=== PATIENT | female | born 1955 | race Caucasian/White ===

== ENCOUNTER → 2017-10-31 08:06 | Outpatient (CLI) | payer OTHER, SELFPAY ==
--- NOTE | 2017-10-31 | BRBX_PTH ---
PATIENT: CLARITZA GRISSOM LOC: [facility] U#:[id number] AGE/SX: 69/F ROOM: RE10/31/[address]: Dr. Miguel Taylor MD : 1955 BED: DIS: SPEC #: [id number] RECD: 10/31/17 10:03 STATUS: EROS RAFA #: [id number] CARMELINA: 10/31/17 00:[address]: Miguel Taylor DEPT: SURGICAL PATHOLOGY RECD BY: Eddie Ritter ENTERED: 10/31/17 10:04 SP TYPE: BREAST BX OTHR DR: Dr. Jonathon Nguyen MD Tissues: Right breast, NOS Procedures: Surgery Specimen Level IV HEADER OPERATION: Right stereotactic breast biopsy PRE-OP DIAGNOSIS: Right retroareolar microcalcifications TISSUE SUBMITTED: Right breast core tissue ISCHEMIC TIME: 1 minute FIXATION TIME: 11 hours MICROSCOPIC DIAGNOSIS Right breast, retroareolar region, stereotactic core biopsy: Fibrocystic change with hyalinized stroma. Anjalial microcalcifications. No evidence of malignancy. AM:dante 11/01/17 COMMENT Case has been reviewed in consultation with Dr. Mary who concurs with the above diagnosis. IDC:SJ MICROSCOPIC DESCRIPTION Slides are reviewed. GROSS DESCRIPTION Received is one container labeled with the patient's name and not further designated. The specimen consists of multiple elongated fragments of rey-yellow fibroadipose tissue that in aggregate measure 7.5 x 3 x 0.3 cm. The entire specimen is submitted in three cassettes. / SJ:dante 10/31/17 TC:5 CPT: 15925
--- NOTE | 2017-10-31 18:39 | PCM.OPRPT ---
Report of Operation Date of Procedure: 10/31/17 Pre-Operative Diagnosis: ABNORMAL RIGHT BREAST MAMMOGRAM - MICROCALCIFICATIONS Post-Operative Diagnosis: ABNORMAL RIGHT BREAST MAMMOGRAM - MICROCALCIFICATIONS - SUCCESSFUL BIOPSY Surgery/Procedure Performed:: RIGHT BREAST VACCUUM ASSISTED STEREOTACTIC BIOPSY, SPECIMEN RADIOGRAPH, MARKER PLACEMENT Description of Surgical Findings:: ABOVE Type of Anesthesia:: Local Specimen's removed: RIGHT BREAST TISSUE Description of Procedure: The patient was brought to the stereotactic suite and informed of the plan course of events. The right breast was positioned in the CC approach on the Ravi stereotactic table. Mammographic image demonstrated the area of abnormality to be located in the center of the radiograph. Stereotactic images were then obtained which demonstrated good positioning of the abnormality for biopsy with good stroke jerry parameters. The breast was cleaned with Betadine area did one percent lidocaine was used to anesthetize the skin and a small stab incision made. An 8-gauge mammotome needle was placed into the pre-fire position. Stereotactic images demonstrated good positioning around the planned biopsy site. Local anesthetic injected deeply in the breast. The needle was deployed. Post deployment images demonstrated good positioning of the planned biopsy site. Multiple vacuum-assisted samples were obtained and [id number] fashion. Specimen radiograph demonstrated micro-calcifications in the sample. A gel marker clip was deployed. Post biopsy images demonstrated good position of the clip relative the biopsy cavity. The breast was removed from compression. Steri-Strips and a dressing applied. Post procedure mammogram images were obtained.
--- NOTE | 2017-10-31 18:42 | OP.PCM_ITS ---
Report of Operation Date of Procedure: 10/31/17 Pre-Operative Diagnosis: ABNORMAL RIGHT BREAST MAMMOGRAM - MICROCALCIFICATIONS Post-Operative Diagnosis: ABNORMAL RIGHT BREAST MAMMOGRAM - MICROCALCIFICATIONS - SUCCESSFUL BIOPSY Surgery/Procedure Performed:: RIGHT BREAST VACCUUM ASSISTED STEREOTACTIC BIOPSY , SPECIMEN RADIOGRAPH, MARKER PLACEMENT Description of Surgical Findings:: ABOVE Type of Anesthesia:: Local Specimen's removed: RIGHT BREAST TISSUE Description of Procedure: The patient was brought to the stereotactic suite and informed of the plan course of events. The right breast was positioned in the CC approach on the Ravi stereotactic table. Mammographic image demonstrated the area of abnormality to be located in the center of the radiograph. Stereotactic images were then obtained which demonstrated good positioning of the abnormality for biopsy with good stroke jerry parameters. The breast was cleaned with Betadine area did one percent lidocaine was used to anesthetize the skin and a small stab incision made. An 8-gauge mammotome needle was placed into the pre-fire position. Stereotactic images demonstrated good positioning around the planned biopsy site. Local anesthetic injected deeply in the breast. The needle was deployed. Post deployment images demonstrated good positioning of the planned biopsy site. Multiple vacuum-assisted samples were obtained and around-the- clock fashion. Specimen radiograph demonstrated micro-calcifications in the sample. A gel marker clip was deployed. Post biopsy images demonstrated good position of the clip relative the biopsy cavity. The breast was removed from compression. Steri-Strips and a dressing applied. Post procedure mammogram images were obtained.
== END ==
PROVIDERS: PCP Family Medicine; Visit Provider Surgery
DX: R92.8 Other abnormal and inconclusive findings on diagnostic imaging of breast (principal); R92.0 Mammographic microcalcification found on diagnostic imaging of breast
CPT/HCPCS: 19081; 88305; J7050

== ENCOUNTER → 2018-06-20 11:35 | Outpatient (CLI) | payer OTHER, SELFPAY ==
--- NOTE | 2018-06-20 11:50 | EKG12_ITS ---
Test Reason : PREOP Blood Pressure : / mmHG Vent. Rate : 067 BPM Atrial Rate : 067 BPM P-R Int : 162 ms QRS Dur : 140 ms QT Int : 420 ms P-R-T Axes : 030 049 012 degrees QTc Int : 443 ms Normal sinus rhythm Right bundle branch block Abnormal ECG Confirmed by DESTINY ROSAS, DARIUSZ ([id number]), rewrite editor JOELLE BUENROSTRO ([id number]) on 06/21/2018 1:50:30 PM Referred By: Arsh Heath Confirmed By:DARIUSZ DIXON MD
[2018-06-20 12:35] LABS: Hematocrit 39.1 % (37-47); Hemoglobin 12.4 g/dl (12.0-15.0); Mean Corp Hgb Conc 31.7 g/gl (32-36); Mean Corpuscular Hgb 28.8 pg (27.0-32.0); Mean Corpuscular Volume 90.7 fL (81-99); Mean Platelet Vol. 10.3 fl (6.2-12.0); Platelet Count 195 K/mm3 (150-450); RBC Distribution Width CV 12.7 % (11.6-14.6); RBC Distribution Width SD 42.1 fl (35.1-43.9); Red Blood Count 4.31 M/mm3 (4.2-5.4); White Blood Count 7.4 K/mm3 (4.4-11.0)
[2018-06-20 12:37] LABS: Scan Indicated on CBC? Y/N NO
[2018-06-20 13:00] LABS: Anion Gap 7 (5-15); BUN 18 mg/dL (7-18); BUN/Creat Ratio 25.4 RATIO (10-20); Calcium,Total 8.8 mg/dL (8.5-10.1); Chloride 104 mmol/L (98-107); Creatinine, Serum 0.71 mg/dL (0.55-1.02); EST Glomerular Filtration Rate 89 mL/min (>60); Est Glom Filt Rate - Afr Amer 108 mL/min (>60); Glucose 100 mg/dL (74-106); Potassium 3.6 mmol/L (3.5-5.1); Sodium Level 142 mmol/L (136-145)
== END ==
PROVIDERS: Family Provider Family Medicine; PCP Family Medicine; Referring Provider Physician Assistant Surgical; Visit Provider Physician Assistant Surgical
DX: Z01.818 Encounter for other preprocedural examination (principal); Z01.810 Encounter for preprocedural cardiovascular examination
CPT/HCPCS: 36415; 80048; 85027; 93005

== ENCOUNTER 2018-12-12 07:35 | Day surgery (SDC) | payer OTHER, SELFPAY ==
[2018-12-12 08:10] VITALS: BP 107/57; PULSE 74; RESP 16; TEMP 36.8; O2SAT 97
[2018-12-12] MEDS: Lactated Ringers 1,000 ML 100 ML IV (08:20)
--- NOTE | 2018-12-12 08:45 | COLBX_PTH ---
PATIENT: CLARITZA GRISSOM LOC: [place] U#:[id number] AGE/SX: 63/F ROOM: RE12/12/[address]: Dr. Emil Bernal MD : 1955 BED: DIS: 12/12/2018 SPEC #: [id number] RECD: 12/12/18 11:36 STATUS: EROS CRAIG #: [id number] CARMELINA: 12/12/18 08:[address]: Emil Bernal DEPT: SURGICAL PATHOLOGY RECD BY: Matheus Jefferson ENTERED: 12/12/18 13:10 SP TYPE: COLON BX OTHR DR: Dr. Jonathon Nguyen MD Tissues: Anus, NOS Procedures: Surgery Specimen Level III HEADER OPERATION: Colonoscopy - open access (MAC) PRE-OP DIAGNOSIS: Screening TISSUE SUBMITTED: Anus biopsy MICROSCOPIC DIAGNOSIS Anus, biopsy: A fragment of colonic mucosa, no pathologic diagnosis. SJ:dante 11/6/19 COMMENT Case has been reviewed in consultation with Dr. Zavaleta who concurs with the above diagnosis. IDC:AM MICROSCOPIC DESCRIPTION Slides are reviewed. GROSS DESCRIPTION Received in fixative is one container labeled with the patient's name and designated anus biopsy. The specimen consists of one irregular fragment of light rey soft tissue that measures 0.3 x 0.2 x 0.1 cm. The specimen is totally submitted in one cassette. / SJ:dante 12/12/18 TC:4 CPT: 49769
--- NOTE | 2018-12-12 09:08 | PCM.HP.STD ---
Problem List (1) Screening for intestinal cancer Status: Acute History of Present Illness Date of Admission: 12/12/18 The patient is a 63 year old F who presents for screening colonoscopy today. A previous colonoscopy performed July 25, [address] Mikie Dutta gastroenterology only demonstrated some hemorrhoids. She denies any abdominal pain. No bright red blood per rectum or melena. No unexpected weight loss. No change in bowel habits. Past Medical History Allergies No Known Allergies Allergy (Verified 12/08/18 12:10) Home Medications: Ambulatory Orders Medication Instructions Recorded NK 12/08/18 Smoking Status: Never smoker Tobacco Use: Non-smoker Review of Systems Constitutional: Denies: Anorexia HEENT: Denies: Difficulty Swallowing Cardiovascular: Denies: Chest Pain Gastrointestinal: Denies: Abdominal Pain Endocrine: Denies: Change in Body Habitus VTE Information - Inpt Only VTE Present on Admission: No Patient Problems: Active and Suspected Problems Screening for intestinal cancer (Acute) - Physical Exam Vitals/I&O's: Vital Signs Temp Pulse Resp BP Pulse Ox 98.2 F 74 16 107/57 L 97 12/12/18 08:10 12/12/18 08:10 12/12/18 08:10 12/12/18 08:10 12/12/18 08:10 Oxygen Delivery Method Room Air Weight: 408 lb 11.792 oz General: Alert, Oriented x3, Cooperative HEENT: Atraumatic Lungs: Clear to auscultation, Normal air movement Cardiovascular: Regular rate, Regular Rhythm Abdomen: Bowel Sounds Present, Soft, Non Tender Current Medications Lactated Ringer's () 1,000 mls @ 100 mls/hr IV .Q10H SKY Last Admin: 12/12/18 08:20 Dose: 100 mls/hr Documented by: Assessment/Plan All Active Problems Screening for intestinal cancer (Acute) Plan to proceed with a screening colonoscopy with possible biopsy or polypectomy is indicated. She is aware of the technique, benefits, risks, alternatives. She has had an opportunity to ask and have questions answered. She presents via our open access program. We will proceed as noted. Emil Bernal M.D., F.A.C.S.
--- NOTE | 2018-12-12 09:48 | OP.ENDO_ITS ---
12/12/2018 Jonathon Nguyen MD Re : Colonoscopy procedure for Maricarmen Hannah Dear Dr. Nguyen This procedure was performed on Wednesday, December 12, 2018. My impressions and recommendations are as follows: Impressions : - Hemorrhoids found on perianal exam. - One 4 mm polyp at the anus, removed with a cold biopsy forceps. Resected and retrieved. - Diverticulosis in the entire examined colon. Recommendations : - Discharge patient to home. - Resume previous diet. - Continue present medications. - Repeat colonoscopy in 5 years for surveillance. - Telephone my office for pathology results in 1 week. My findings are described in the full procedure note, which is enclosed. If I can be of further assistance, please feel free to contact me at Doctor phone number(s): Work: . Sincerely, Emil Bernal MD 12/12/2018 9:47:40 AM This report has been signed electronically.
[2018-12-12 09:52] VITALS: BP 107/57; BP 85/70; PULSE 84; RESP 18; TEMP 36.2; O2SAT 97
[2018-12-12 09:57] VITALS: BP 107/57; BP 88/52; PULSE 68; RESP 16; O2SAT 100
[2018-12-12 10:02] VITALS: BP 107/57; BP 96/60; PULSE 67; RESP 16; O2SAT 99
[2018-12-12 10:10] VITALS: BP 101/52; BP 107/57; PULSE 64; RESP 16; TEMP 36.2; O2SAT 100
[2018-12-12 10:20] VITALS: BP 107/57
== END 2018-12-12 10:47 | disposition home or self-care (01) ==
LOC: EN 07:36 → AC 07:37
PROVIDERS: Family Provider Family Medicine; PCP Family Medicine; Referring Provider Family Medicine; Visit Provider Surgery
PROC: 0DJD8ZZ Inspection of Lower Intestinal Tract, Via Natural or Artificial Opening Endoscopic (ICD-10-PCS; CPT 45378; principal; 2018-12-12 08:40)
DX: Z12.11 Encounter for screening for malignant neoplasm of colon (principal); K64.9 Unspecified hemorrhoids; K62.0 Anal polyp; K57.30 Diverticulosis of large intestine without perforation or abscess without bleeding
CPT/HCPCS: 45380; 88304; J7120; J2405